=== PATIENT | male | born 1970 | race Caucasian/White ===

== ENCOUNTER 2017-02-16 14:43 | Observation (INO) | payer BC ==
--- NOTE | 2017-02-16 15:05 | ED ---
General Adult HPI - General Chief complaint: Chest Pain Stated complaint: Chest Pain Time Seen by Provider: 02/16/17 14:47 Source: patient, RN notes reviewed, old records reviewed Mode of arrival: ambulatory Limitations: no limitations - History of Present Illness Initial comments: 46-year-old male presents with chief complaint left arm numbness and tingling and anterior chest tightness. Patient was golfing. He he began having left arm numbness and tingling at rest. This progressed to anterior chest tightness. Symptoms did not resolve with 15 minutes of additional rest. Symptoms began approximately 30 minutes prior to arrival. Patient plays golf 3 times a week, he has never had symptoms like this before in the past. Denies headache. Denies shortness of breath. Denies nausea or vomiting. Patient does report some lightheadedness. - Related Data Home Medications Medication Instructions Recorded Confirmed No Known Home Medications [No 01/03/16 02/16/17 Known Home Medications] Allergies Allergy/AdvReac Type Severity Reaction Status Date / Time Sulfa (Sulfonamide Allergy Unknown Verified 02/16/17 15:16 Antibiotics) Childhood Review of Systems ROS Statement: Those systems with pertinent positive or pertinent negative responses have been documented in the HPI. ROS Other: All systems not noted in ROS Statement are negative. Past Medical History Past Medical History: Atrial Fibrillation History of Any Multi-Drug Resistant Organisms: None Reported Past Surgical History: Cholecystectomy, Orthopedic Surgery Past Anesthesia/Blood Transfusion Reactions: No Reported Reaction Past Psychological History: No Psychological Hx Reported Smoking Status: Former smoker Past Alcohol Use History: Occasional Past Drug Use History: Marijuana General Exam Limitations: no limitations General appearance: alert, in no apparent distress Head exam: Present: atraumatic, normocephalic Eye exam: Present: normal appearance, PERRL Pupils: Present: normal accommodation, irregular ENT exam: Present: normal exam, mucous membranes moist Neck exam: Present: normal inspection. Absent: tenderness, meningismus Respiratory exam: Present: normal lung sounds bilaterally. Absent: respiratory distress, wheezes Cardiovascular Exam: Present: regular rate, normal rhythm GI/Abdominal exam: Present: soft. Absent: distended, tenderness Extremities exam: Present: normal inspection, full ROM, normal capillary refill. Absent: pedal edema Neurological exam: Present: alert, oriented X3, other (No focal motor deficit, left upper extremity numbness and tingling). Absent: CN II-XII intact Psychiatric exam: Present: normal affect, normal mood Skin exam: Present: warm, dry Course Vital Signs 02/16/17 02/16/17 02/16/17 14:44 14:51 15:57 Temperature 97.7 F Pulse Rate 84 74 60 Respiratory 18 18 18 Rate Blood Pressure 142/85 131/89 123/78 O2 Sat by Pulse 97 68 L 97 Oximetry EKG Findings - EKG Comments: EKG Findings:: EKG shows normal sinus rhythm, ventricular rate is 60, WI interval 128, QRS duration 98, QTC 425, there is incomplete right bundle-branch block, no signs of ST segment elevation or depression Medical Decision Making - Medical Decision Making 46-year-old male presents with chief complaint left upper extremity numbness and tingling. Patient did have some associated chest tightness with this, this began after the numbness and tingling. Medical record was reviewed patient in normal heart cath in January 2016 normal ejection fraction. Symptoms are likely to be cardiac. On reevaluation patient's symptoms did persist. He continues to have left upper extremity numbness and tingling, no neck stiffness or pain. No weakness noted on examination. Laboratory studies including CBC, CMP and cardiac enzymes are unremarkable. Patient is given aspirin emergency department. Diagnosis: Left upper extremity numbness and tingling will rule out CVA - Lab Data Result diagrams: 02/16/17 15:00 02/16/17 15:00 Lab Results 02/16/17 02/16/17 02/16/17 Range/Units 15:00 15:00 15:00 WBC 3.6 L (3.8-10.6) k/uL RBC 4.55 (4.30-5.90) m/uL Hgb 14.8 (13.0-17.5) gm/dL Hct 43.6 (39.0-53.0) % MCV 95.8 (80.0-100.0) fL MCH 32.6 (25.0-35.0) pg MCHC 34.0 (31.0-37.0) g/dL RDW 13.4 (11.5-15.5) % Plt Count 186 (150-450) k/uL Neutrophils % 49 % Lymphocytes % 39 % Monocytes % 7 % Eosinophils % 2 % Basophils % 1 % Neutrophils # 1.8 (1.3-7.7) k/uL Lymphocytes # 1.4 (1.0-4.8) k/uL Monocytes # 0.3 (0-1.0) k/uL Eosinophils # 0.1 (0-0.7) k/uL Basophils # 0.0 (0-0.2) k/uL PT 10.1 (9.0-12.0) sec INR 1.0 (<1.2) APTT 30.8 H (22.0-30.0) sec Sodium 141 (137-145) mmol/L Potassium 4.4 (3.5-5.1) mmol/L Chloride 107 (98-107) mmol/L Carbon Dioxide 24 (22-30) mmol/L Anion Gap 10 mmol/L BUN 14 (9-20) mg/dL Creatinine 1.36 H (0.66-1.25) mg/dL Est GFR (MDRD) Af Amer >60 (>60 ml/min/1.73 sqM) Est GFR (MDRD) Non-Af 56 (>60 ml/min/1.73 sqM) Glucose 83 (74-99) mg/dL Calcium 9.1 (8.4-10.2) mg/dL Magnesium 1.9 (1.6-2.3) mg/dL Total Bilirubin 0.5 (0.2-1.3) mg/dL AST 42 (17-59) U/L ALT 52 (21-72) U/L Alkaline Phosphatase 96 (38-126) U/L Total Protein 7.4 (6.3-8.2) g/dL Albumin 4.5 (3.5-5.0) g/dL Disposition Clinical Impression: Numbness and tingling in left arm Disposition: ADMITTED IP TO THIS [facility] Condition: Stable Referrals: Delores Pat MD [Primary Care Provider] - 1-2 days Decision to Admit Reason: Admit from EC Decision Date: 02/16/17 Decision Time: 16:08
[2017-02-16 15:24] LABS: Basophils % (A) 1 %; CHCM 35.6; Eosinophils # (A) 0.1 k/uL (0-0.7); Eosinophils % (A) 2 %; HCT 43.6 % (39.0-53.0); HDW 2.54; HGB 14.8 gm/dL (13.0-17.5); Luc # (Auto) 0.09; Luc % (Auto) 2; Lymphocytes # (A) 1.4 k/uL (1.0-4.8); Lymphocytes % (A) 39 %; MCH 32.6 pg (25.0-35.0); MCV 95.8 fL (80.0-100.0); Mean Platelet Volume 7.8; Monocytes # (A) 0.3 k/uL (0-1.0); Monocytes % (A) 7 %; Neutrophils # (A) 1.8 k/uL (1.3-7.7); Neutrophils % (A) 49 %; RBC 4.55 m/uL (4.30-5.90); RDW 13.4 % (11.5-15.5); WBC 3.6 k/uL (3.8-10.6); WBC (Perox) 3.42
[2017-02-16 15:32] LABS: Partial Thromboplastin Time 30.8 sec (22.0-30.0); Prothrombin Time 10.1 sec (9.0-12.0)
[2017-02-16 15:35] LABS: ALT 52 U/L (21-72); AST 42 U/L (17-59); Alkaline Phosphatase 96 U/L (38-126); Anion Gap 10 mmol/L; Blood Urea Nitrogen 14 mg/dL (9-20); Calcium 9.1 mg/dL (8.4-10.2); Carbon Dioxide 24 mmol/L (22-30); Chloride 107 mmol/L (98-107); Glucose 83 mg/dL (74-99); Magnesium 1.9 mg/dL (1.6-2.3); Non-African American GFR(MDRD) 56 (>60 ml/min/1.73 sqM); Potassium 4.4 mmol/L (3.5-5.1); Sodium 141 mmol/L (137-145); Total Bilirubin 0.5 mg/dL (0.2-1.3); Total Protein 7.4 g/dL (6.3-8.2)
--- NOTE | 2017-02-16 15:38 | CT ---
EXAMINATION TYPE: CT brain wo con DATE OF EXAM: 02/16/2017 COMPARISON: NONE HISTORY: Dizziness with right side arm numbness. CT DLP: [address] of the brain was performed. The ventricles, basal cisterns and sulci overlying the cerebral convexities demonstrate a normal appe arance. There is no evidence for intracranial hemorrhage or sulcal effacement. No mass effects are seen. Osseous calvarium is intact. Chronic paranasal sinusitis. If symptoms persist consider MRI as clinically warranted. IMPRESSION: 1. No acute intracranial process is seen at this time. Chronic paranasal sinusitis.
[2017-02-16 15:39] LABS: Creatine Kinase 367 U/L (55-170)
[2017-02-16 15:52] LABS: Troponin I <0.012 ng/mL (0.000-0.034)
--- NOTE | 2017-02-16 15:53 | XR ---
EXAMINATION TYPE: XR chest 2V DATE OF EXAM: 02/16/2017 COMPARISON: Chest x-ray January 03, 2016 HISTORY: Chest pain TECHNIQUE: Frontal and lateral views of the chest are obtained. FINDINGS: Somewhat low lung volumes are redemonstrated. There is no focal air space opacity, pleural effusion, or pneumothorax seen. The cardiac silhouette size is within normal limits. The osseous structures are intact. Cholecystectomy clips are noted on lateral view. IMPRESSION: No acute cardiopulmonary process. No significant change from prior.
[2017-02-16] MEDS ORDERED: ASPIRIN 325 MG TAB PO STA (16:02)
[2017-02-16 16:14] LABS: Creatine Kinase MB 2.5 ng/mL (0.0-2.4)
[2017-02-16] MEDS: SODIUM CHLORIDE 0.9% 1,000 ML IV SCH (16:16)
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
[2017-02-16] MEDS ORDERED: TEMAZEPAM 15 MG CAP PO PRN (22:27)
[2017-02-17] MEDS: SODIUM CHLORIDE 0.9% 1,000 ML IV SCH (02:49)
[2017-02-17 06:17] LABS: Cholesterol 186 mg/dL (<200); HDL Cholesterol 56 mg/dL (40-60)
[2017-02-17] MEDS ORDERED: ASPIRIN 325 MG TAB PO SCH (09:00)
--- NOTE | 2017-02-17 09:18 | US ---
EXAMINATION TYPE: US carotid duplex BILAT DATE OF EXAM: 02/17/2017 COMPARISON: NONE CLINICAL HISTORY: Stenosis. Numbness left arm x 4 hours EXAM MEASUREMENTS: RIGHT: Peak Systolic Velocity (PSV) cm/sec ----- Right CCA: 95.3 ----- Right ICA: 81.1 ----- Right ECA: 103.1 ICA/CCA ratio: 0.9 RIGHT: End Diastole cm/sec ----- Right CCA: 20.2 ----- Right ICA: 27.1 ----- Right ECA: 15.0 LEFT: Peak Systolic Velocity (PSV) cm/sec ----- Left CCA: 67.7 ----- Left ICA: 94.7 ----- Left ECA: 80.0 ICA/CCA ratio: 1.4 LEFT: End Diastole cm/sec ----- Left CCA: 18.0 ----- Left ICA: 39.8 ----- Left ECA: 11.7 VERTEBRALS (direction of flow): Right Vertebral: Antegrade Left Vertebral: Antegrade Rhythm: Normal IMPRESSION: 1. No significant hemodynamic stenosis bilaterally.
--- NOTE | 2017-02-17 09:37 | MR ---
"EXAMINATION TYPE: MR brain wo con DATE OF EXAM: 02/17/2017 COMPARISON: CT brain 02/16/2017 HISTORY: TIA T1-weighted sagittal, T2, FLAIR, and diffusion axial, and T2 coronal coronal views of the brain are s ubmitted. There is an area of abnormal signal within the dilatation along the body lateral margin of the right lateral ventricle. Recommend post contrast imaging. No midline shift. Changes of chronic sinusitis are seen. Changes of right mastoiditis noted. Craniocervical junction maintained in the sella turcica has a normal appearance. There are a few scat tered focal areas of abnormal signal the white matter which are nonspecific. IMPRESSION: 1. There is a 1.5 cm area of intermediate signal along the body and frontal horn of the right lateral ventricle. Does appear to be slight mass effect upon the ventricle with no midline shift. Could be o n the basis of subacute to chronic ischemia. Cannot rule out a neoplasm. Recommend post contrast imag ing. 2. Nonspecific white matter findings. Differential diagnosis would include hypertension, migraine hea daches, remote microvascular ischemia and demyelinating processes 3. Chronic sinusitis and mild right mastoiditis. A Villalba message has been communicated to Chantal Taylor via the [employer] [facility] | Critical Result sys tem on 02/17/2017 9:34 AM, Message ID [id number]."
--- NOTE | 2017-02-17 11:00 | ECHOF ---
Referral Reason:TIA MEASUREMENTS -------- HEIGHT: 180.3 cm WEIGHT: 108.4 kg BP: 119/70 IVSd: 1.3 cm (0.6 - 1.1) LVIDd: 4.6 cm (3.9 - 5.3) LVPWd: 1.6 cm (0.6 - 1.1) IVSs: 2.3 cm LVIDs: 1.9 cm LVPWs: 1.8 cm Ao Diam: 3.2 cm (2.0 - 3.7) AV Cusp: 2.4 cm (1.5 - 2.6) LA Diam: 4.4 cm (2.7 - 3.8) MV EXCURSION: 22.907 mm (> 18.000) MV EF SLOPE: 163 mm/s (70 - 150) EPSS: 0.5 cm RAP: 5.00 mmHg RVSP: 33.38 mmHg FINDINGS -------- Sinus rhythm. This was a technically adequate study. The left ventricular size is normal. There is moderate concentric left ventricular hypertrophy. Overall left ventricular systolic function is normal with, an EF between 55 - 60 %. The right ventricle is normal in size and function. The left atrium is normal in size. The right atrium is normal in size. The aortic valve is trileaflet, and appears structurally normal. No aortic stenosis or regurgitation. There is trace mitral regurgitation. Trace tricuspid regurgitation present. The right ventricular systolic pressure, as measured by Doppler, is 33.38mmHg. Pulmonic valve appears structurally normal. The aortic root size is normal. The pericardium is normal. CONCLUSIONS -------- 1. Sinus rhythm. 2. There is trace mitral regurgitation. 3. Trace tricuspid regurgitation present. 4. The right ventricular systolic pressure, as measured by Doppler, is 33.38mmHg. 5. Pulmonic valve appears structurally normal. 6. The aortic root size is normal. 7. The pericardium is normal. 8. This was a technically adequate study. 9. The left ventricular size is normal. 10. There is moderate concentric left ventricular hypertrophy. 11. Overall left ventricular systolic function is normal with, an EF between 55 - 60 %. 12. The right ventricle is normal in size and function. 13. The left atrium is normal in size. 14. The right atrium is normal in size. 15. The aortic valve is trileaflet, and appears structurally normal. No aortic stenosis or regurgitation. BATTALION CHIEF: Diana Landaverde RDCS
[2017-02-17 11:56] VITALS: RESP 16
[2017-02-17 12:02] VITALS: BP 122/80; PULSE 60; TEMP 97.9
--- NOTE | 2017-02-17 15:48 | P.DS ---
Providers Date of admission: 02/16/17 16:02 Attending physician: Moni Aguillon Consults: 02/16/17 16:03 Consult Physician Urgent Consulting Provider: Art Taylor Consult Reason/Comments: Left upper extremity numbness Do you want consulting provider notified?: Yes, Notify in am Primary care physician: Delores Adilia [facility] Course: Please refer to my H&P for further details Patient Condition at Discharge: Stable Plan - Discharge Summary New Discharge Prescriptions: New Aspirin 81 mg PO DAILY #30 chewable Atorvastatin Calcium [Lipitor] 40 mg PO HS #30 tablet Discharge Medication List Aspirin 81 mg PO DAILY #30 chewable 02/17/17 [Rx] Atorvastatin Calcium [Lipitor] 40 mg PO HS #30 tablet 02/17/17 [Rx] Follow up Appointment(s)/Referral(s): Delores Pat MD [Primary Care Provider] - 3 Days (office closed for lunch all info given to patient to make own follow up APT.) Patient Instructions/Handouts: Transient Ischemic Attack (DC) Discharge Disposition: HOME SELF-CARE
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
== END 2017-02-17 13:53 | disposition home or self-care (01) ==
LOC: EC 14:43 → 6SEL 16:02
PROVIDERS: ADMIT Internal Medicine; ATTEND Internal Medicine
DX: R20.0 Anesthesia of skin (principal); R20.2 Paresthesia of skin; M43.6 Torticollis; R53.1 Weakness; R07.89 Other chest pain; N28.9 Disorder of kidney and ureter, unspecified; R79.89 Other specified abnormal findings of blood chemistry; E78.5 Hyperlipidemia, unspecified; R00.1 Bradycardia, unspecified; E66.9 Obesity, unspecified; Z68.33 Body mass index [BMI] 33.0-33.9, adult; Z88.2 Allergy status to sulfonamides; F17.200 Nicotine dependence, unspecified, uncomplicated; Z83.3 Family history of diabetes mellitus; Z82.49 Family history of ischemic heart disease and other diseases of the circulatory system
CPT/HCPCS: 99285; 36415; 93005; 93306; 92523; 80061; 80053; 82550; 82553; 83735; 84484; 85025; 85610; 85730; 71020; 93880; 70450; 70551; G0378 ×2